=== PATIENT | female | born 1975 | race Caucasian/White ===

== ENCOUNTER → 2017-02-20 | Outpatient (CLI) | payer BC ==
[~2017-02-20] MED LIST: ASPI325T4 PO; CALC500C50 PO; TYLOTC500 PO
[2017-02-22 14:17] LABS: PROLACTIN 10.3 ng/mL
== END | disposition home or self-care (01) ==
LOC: C.LAB 15:03
PROVIDERS: ATTEND Obstetrics & Gynecology
DX: N93.8 Other specified abnormal uterine and vaginal bleeding (principal)

== ENCOUNTER → 2017-02-20 | Outpatient (CLI) | payer BC | END | disposition home or self-care (01) | LOC: C.PAPS 14:13 | PROVIDERS: ATTEND Obstetrics & Gynecology | DX: Z01.411 Encounter for gynecological examination (general) (routine) with abnormal findings (principal); R87.610 Atypical squamous cells of undetermined significance on cytologic smear of cervix (ASC-US) ==

== ENCOUNTER 2017-05-15 21:23 | Emergency (ER) | payer BC ==
[~2017-05-15] VITALS: Ht 157.5 cm; Wt 74.7 kg
[2017-05-15 21:37] VITALS: Ht 157.5 cm; Wt 74.7 kg
[2017-05-15] MEDS ORDERED: KETOROLAC TROMETHAMINE 30 MG/ML VIAL IV STA (21:55)
[2017-05-15] MEDS ORDERED: ONDANSETRON INJ 2 MG/ML 2 ML VIAL IV STA (21:55)
[2017-05-15 22:18] VITALS: O2SAT 100
[2017-05-15 22:43] LABS: BASO % 0.4 %; BASO ABS # 0.03 K/uL (0-0.2); EOS % 0.2 %; HEMATOCRIT 24.2 % (37-47); IG% 0.1 %; LYMPH % 11.8 %; LYMPH ABS # 0.96 K/uL (1.2-3.4); MEAN CELL VOLUME 76.1 fL (80-100); MEAN CORPUSCULAR HEMOGLOBIN 22.6 pg (25-34); MEAN CORPUSCULAR HGB CONC 29.8 g/dl (32-36); MEAN PLATELET VOLUME 10.7 fL (7.4-10.4); MONO % 6.9 %; NEUT % 80.6 %; PLATELET COUNT 194 K/uL (130-400); RED BLOOD COUNT 3.18 M/uL (4.2-5.4); WHITE BLOOD COUNT 8.17 K/uL (4.8-10.8)
[2017-05-15 22:44] LABS: MANUAL MICROSCOPIC REQUIRED? NO; REVIEW REQ? YES; URINE APPEARANCE CLOUDY (CLEAR); URINE BILIRUBIN NEG (NEG); URINE COLOR YELLOW; URINE EPITHELIAL CELL AUTO >30 /lpf (0-5); URINE NITRITE NEG (NEG); URINE SPECIFIC GRAVITY 1.025 (1.000-1.030); UROBILINOGEN NEG (NEG); ZZUR CULT IF INDIC CLEAN CATCH YES
--- NOTE | 2017-05-15 23:00 | DIAGNOSTIC IMAGING REPORT ---
ABD/PELVIS WITHOUT FOR STONE CLINICAL HISTORY: 41 years-old Female presenting with severe left flank pain. TECHNIQUE: Multidetector CT of the abdomen and pelvis was performed without the use of intravenous contrast. IV contrast: None. A dose lowering technique was used consistent with the principles of ALARA (as low as reasonably achievable). COMPARISON: None. CT DOSE (mGy.cm): The estimated cumulative dose is 1075.15 mGy.cm. FINDINGS: Insurance Commissioner topogram: Unremarkable. Lung bases: Minimal basilar opacities, likely atelectasis. Intraventricular blood pool is less dense than the adjacent myocardium consistent with anemia. Normal heart size. No pericardial or pleural effusion. Liver: Normal morphology. Normal density. Biliary: No gross biliary ductal dilatation allowing for noncontrast technique. Normal gallbladder. Pancreas: Normal noncontrast appearance. Spleen: Normal noncontrast appearance. Adrenal glands: Normal noncontrast appearance. Kidneys and ureters: Hyperdensity of the renal medulla suggests medullary nephrocalcinosis. No nephrolithiasis. No hydronephrosis. Normal ureters. Bladder: Incompletely evaluated secondary to underdistention. Pelvic organs: Prominence of the endometrium. The left ovary contains a 4.5 cm functional cyst. Mild thickening of the upper vagina suggested area Bowel: Normal appendix. No bowel obstruction. Feces in the small bowel suggest delayed transit. Peritoneal cavity: No free fluid or intraperitoneal gas. Lymph nodes: No gross lymphadenopathy allowing for noncontrast technique. Vasculature: Normal noncontrast appearance. Abdominal wall: Small fat-containing umbilical hernia. Musculoskeletal: Normal. IMPRESSION: 1. 4.5 cm left ovarian functional cyst. This is incompletely evaluated without intravenous contrast. Given the of concomitant presence of prominent endometrium and potential upper vaginal thickening, further evaluation with pelvic ultrasound to be considered. 2. Suggestion of medullary nephrocalcinosis. 3. Anemia. Electronically signed by: Nolberto Stanford M.D. 05/15/2017 10:59 PM Dictated Date/Time: 05/15/2017 10:53 PM
[2017-05-15 23:01] LABS: ALT/SGPT 30 U/L (12-78); BLOOD UREA NITROGEN 17 mg/dl (7-18); BUN/CREATININE RATIO 19.9 (10-20); CALCIUM 8.4 mg/dl (8.5-10.1); CARBON DIOXIDE 27 mmol/L (21-32); CHLORIDE 105 mmol/L (98-107); CREATININE 0.84 mg/dl (0.60-1.20); GLUCOSE 103 mg/dl (70-99); SODIUM 138 mmol/L (136-145)
[2017-05-15 23:03] LABS: COMPLETE YES; HYPOCHROMIA PRESENT; PREG INTERNAL NEGATIVE QC NEG CLEAR BACKGROUND; PREG INTERNAL POSITIVE QC POS CONTROL LINE
[2017-05-15 23:04] LABS: ALKALINE PHOSPHATASE 51 U/L (45-117); AST/SGOT 12 U/L (15-37)
[2017-05-15] MEDS ORDERED: CEFTRIAXONE SOD INJ 1 GM ADDVIAL IV STA (23:09)
[2017-05-15] MEDS ORDERED: FERROUS SULFATE 325 MG TAB PO STA (23:55)
[2017-05-16] MEDS ORDERED: CEFDINIR 300 MG CAP PO SCH
[2017-05-16] MEDS ORDERED: BIOF500C2 PO (01:25)
[2017-05-16] MEDS ORDERED: FERR1TAB23 PO (01:25)
[2017-05-16] MEDS ORDERED: CEFDINIR 300 MG CAP PO STA (02:26)
--- NOTE | 2017-05-16 02:27 | EMERGENCY ROOM VISIT NOTE ---
History First contact with patient: 21:43 Chief Complaint: FLANK PAIN Stated Complaint: BACK PAIN, PAIN UNDER BREAST AND DOWN ABDOMEN History of Present Illness The patient is a 41 year old female who presents to the Emergency Room with complaints of left flank pain and left lower quadrant pain with urinary symptoms for the past several hours ranging in severity currently 5 out of 10. Nothing makes it better or worse. It radiates to her groin. Patient has a history of endometriosis. She finished her period last week. Her menstrual cycles have been getting heavier. She follows with Dr. Silva. Patient also feels fatigued. Patient states she was told in the past taken iron pill but she does not do this. Patient denies chest pain, dyspnea, vaginal bleeding, black or blood in the stool, bruising, bleeding gums, fever, chills. No recent antibiotics. No history GI bleeding. No blood transfusions in the past. Review of Systems See HPI for pertinent positives & negatives. A total of 10 systems reviewed and were otherwise negative. Past Medical/Surgical History Endometriosis Social History Smoking Status: Never Smoker Smokeless Tobacco Use: No Drug Use: none Marital Status: Housing Status: lives with family Current/Historical Medications Scheduled Bioflavonoid Products (Vitamin C), 1 EA PO DAILY Ferrous Sulfate (Iron), 1 TAB PO DAILY Physical Exam Vital Signs Date Time Temp Pulse Resp B/P (MAP) Pulse Ox O2 Delivery O2 Flow Rate FiO2 05/16/17 01:01 87 20 119/55 97 Room Air 05/15/17 22:38 66 05/15/17 22:18 100 Room Air 05/15/17 22:18 100 Room Air 05/15/17 21:37 36.5 76 18 121/78 98 Room Air Physical Exam VITALS: Vitals are noted on the nurse's note and reviewed by myself. Vital signs stable. GENERAL: Pleasant female, in no acute distress, nondiaphoretic, well-developed well-nourished. SKIN: The skin was without rashes, erythema, edema, or bruising. There is no tenting of the skin. Capillary reflex less than 2 seconds. HEAD: Normocephalic atraumatic. EARS: External auditory canals clear, tympanic membranes pearly dunne without erythema or effusion bilaterally. EYES: Pupils equal round and reactive to light and accommodation. Conjunctivae without injection, sclerae without icterus. Extraocular movements intact. NOSE: Patent, turbinates without inflammation or discharge. MOUTH: Mucous membranes moist. Pharynx without erythema or exudate. Uvula midline. Airway patent. Tongue does not deviate. NECK: Supple without nuchal rigidity. No lymphadenopathy. No thyromegaly. Cervical spine is nontender. No JVD. HEART: Regular rate and rhythm LUNGS: Clear to auscultation bilaterally without wheezes, rales or rhonchi. No dullness to percussion. No retractions or accessory muscle use. ABDOMEN: Positive bowel sounds x 4. Normal tympanic percussion. Soft, nontender, without masses or organomegaly. Anguiano sign negative. No guarding or rebound tenderness. Left CVA tenderness MUSCULOSKELETAL: No muscle atrophy, erythema, or edema noted. NEURO: Patient was alert and oriented to person place and time. Normal sensation to light and sharp touch. No focal neurological deficits. Medical Decision & Procedures Laboratory Results 05/15/17 22:10 Red Blood Count 3.18, Mean Corpuscular Volume 76.1, Mean Corpuscular Hemoglobin 22.6, Mean Corpuscular Hemoglobin Concent 29.8, Mean Platelet Volume 10.7, Neutrophils (%) (Auto) 80.6, Lymphocytes (%) (Auto) 11.8, Monocytes (%) (Auto) 6.9, Eosinophils (%) (Auto) 0.2, Basophils (%) (Auto) 0.4, Neutrophils # (Auto) 6.59, Lymphocytes # (Auto) 0.96, Monocytes # (Auto) 0.56, Eosinophils # (Auto) 0.02, Basophils # (Auto) 0.03 05/15/17 22:10 Test 05/15/17 04:44 05/15/17 22:10 05/15/17 22:15 White Blood Count 8.17 K/uL (4.8-10.8) Red Blood Count 3.18 M/uL (4.2-5.4) Hemoglobin 7.2 g/dL (12.0-16.0) Hematocrit 24.2 % (37-47) Mean Corpuscular Volume 76.1 fL (80-100) Mean Corpuscular Hemoglobin 22.6 pg (25-34) Mean Corpuscular Hemoglobin Concent 29.8 g/dl (32-36) Platelet Count 194 K/uL (130-400) Mean Platelet Volume 10.7 fL (7.4-10.4) Neutrophils (%) (Auto) 80.6 % Lymphocytes (%) (Auto) 11.8 % Monocytes (%) (Auto) 6.9 % Eosinophils (%) (Auto) 0.2 % Basophils (%) (Auto) 0.4 % Neutrophils # (Auto) 6.59 K/uL (1.4-6.5) Lymphocytes # (Auto) 0.96 K/uL (1.2-3.4) Monocytes # (Auto) 0.56 K/uL (0.11-0.59) Eosinophils # (Auto) 0.02 K/uL (0-0.5) Basophils # (Auto) 0.03 K/uL (0-0.2) RDW Standard Deviation 46.9 fL (36.4-46.3) RDW Coefficient of Variation 16.6 % (11.5-14.5) Immature Granulocyte % (Auto) 0.1 % Immature Granulocyte # (Auto) 0.01 K/uL (0.00-0.02) Hypochromasia PRESENT Anion Gap 6.0 mmol/L (3-11) Est Creatinine Clear Calc Drug Dose 81.7 ml/min Estimated GFR () 98.7 Estimated GFR (Non- 85.1 BUN/Creatinine Ratio 19.9 (10-20) Calcium Level 8.4 mg/dl (8.5-10.1) Total Bilirubin 0.2 mg/dl (0.2-1) Direct Bilirubin < 0.1 mg/dl (0-0.2) Aspartate Amino Transf (AST/SGOT) 12 U/L (15-37) Alanine Aminotransferase (ALT/SGPT) 30 U/L (12-78) Alkaline Phosphatase 51 U/L (45-117) Total Protein 7.2 gm/dl (6.4-8.2) Albumin 3.7 gm/dl (3.4-5.0) Lipase 132 U/L (73-393) Human Chorionic Gonadotropin, Qual NEG (NEG) Urine Color YELLOW Urine Appearance CLOUDY (CLEAR) Urine pH 5.0 (4.5-7.5) Urine Specific [place] 1.025 (1.000-1.030) Urine Protein NEG (NEG) Urine Glucose (UA) NEG (NEG) Urine Ketones TRACE (NEG) Urine Occult Blood TRACE (NEG) Urine Nitrite NEG (NEG) Urine Bilirubin NEG (NEG) Urine Urobilinogen NEG (NEG) Urine Leukocyte Esterase MODERATE (NEG) Urine WBC (Auto) >30 /hpf (0-5) Urine RBC (Auto) 0-4 /hpf (0-4) Urine Hyaline Casts (Auto) 5-10 /lpf (0-5) Urine Epithelial Cells (Auto) >30 /lpf (0-5) Urine Bacteria (Auto) 2+ (NEG) Medications Administered Medications (Trade) Dose Ordered Sig/Jorje Route Start Time Stop Time Status Last Admin Dose Admin Ketorolac Tromethamine (Toradol Inj) 30 mg NOW STAT IV 05/15/17 21:55 05/15/17 21:58 DC 05/15/17 22:14 30 MG Ondansetron HCl (Zofran Inj) 4 mg NOW STAT IV 05/15/17 21:55 05/15/17 21:58 DC 05/15/17 22:14 4 MG Ceftriaxone Sodium (Rocephin Inj) 1 gm NOW STAT IV 05/15/17 23:09 05/15/17 23:10 DC 05/15/17 23:50 1 GM Ferrous Sulfate (Feosol Tab) 325 mg NOW STAT PO 05/15/17 23:55 05/15/17 23:57 DC 05/16/17 00:59 325 MG ED Course Prior records/ancillary studies reviewed. Triage Nursing notes reviewed. Additional history obtained from family The patient's history was concerning for flank and abdominal pain. Differential diagnosis: Etiologies such as ovarian cyst, torsion, mass, appendicitis, diverticulitis, PUD, biliary pathology, UTI, pancreatitis, obstruction, mesenteric ischemia, aortic pathology, infections, inflammatory bowel disease, renal colic, as well as others were entertained. Physical examination findings: As above. ER treatment provided: NSS, iron with OJ, type and screen but patient was not transfused, Rocephin On reassessment the patient felt better. Diagnostics interpreted by me: The labs revealed severe anemia concerning for iron deficiency without active bleeding. Type and screen sent Urine concerning for infection and sent for culture Imaging studies: US PELVIC/ENDOVAG: Left ovarian complex mass measuring 5.0 x 4.9 x 4.0 cm. It demonstrates numerous septations and internal echogenicity. No normal left ovarian tissue demonstrated. Blood flow demonstrated along the periphery of the mass. Thickened endometrium, measuring up to 1.8 cm. There is abnormal focal ill- defined heterogeneous region with increased blood flow and also small cystic spaces along the endometrium. Differential includes endometrial carcinoma although benign etiologies are also possible. Trace free fluid. Echogenic region at the distal vagina seen on transabdominal imaging with associated flow on color Doppler is of uncertain etiology and incompletely characterized. Right ovary is normal in size and demonstrates 2 small simple cysts. Radiologist: Benedict Corey MD ABD/PELVIS WITHOUT FOR STONE CLINICAL HISTORY: 41 years-old Female presenting with severe left flank pain. TECHNIQUE: Multidetector CT of the abdomen and pelvis was performed without the use of intravenous contrast. IV contrast: None. A dose lowering technique was used consistent with the principles of ALARA (as low as reasonably achievable). COMPARISON: None. CT DOSE (mGy.cm): The estimated cumulative dose is 1075.15 mGy.cm. FINDINGS: Ice Handler topogram: Unremarkable. Lung bases: Minimal basilar opacities, likely atelectasis. Intraventricular blood pool is less dense than the adjacent myocardium consistent with anemia. Normal heart size. No pericardial or pleural effusion. Liver: Normal morphology. Normal density. Biliary: No gross biliary ductal dilatation allowing for noncontrast technique. Normal gallbladder. Pancreas: Normal noncontrast appearance. Spleen: Normal noncontrast appearance. Adrenal glands: Normal noncontrast appearance. Kidneys and ureters: Hyperdensity of the renal medulla suggests medullary nephrocalcinosis. No nephrolithiasis. No hydronephrosis. Normal ureters. Bladder: Incompletely evaluated secondary to underdistention. Pelvic organs: Prominence of the endometrium. The left ovary contains a 4.5 cm functional cyst. Mild thickening of the upper vagina suggested area Bowel: Normal appendix. No bowel obstruction. Feces in the small bowel suggest delayed transit. Peritoneal cavity: No free fluid or intraperitoneal gas. Lymph nodes: No gross lymphadenopathy allowing for noncontrast technique. Vasculature: Normal noncontrast appearance. Abdominal wall: Small fat-containing umbilical hernia. Musculoskeletal: Normal. IMPRESSION: 1. 4.5 cm left ovarian functional cyst. This is incompletely evaluated without intravenous contrast. Given the of concomitant presence of prominent endometrium and potential upper vaginal thickening, further evaluation with pelvic ultrasound to be considered. 2. Suggestion of medullary nephrocalcinosis. 3. Anemia. Electronically signed by: Nolberto Stanford M.D. Consultation: A consultation was placed with the Dr. Whitfield and Dr. Silva. The case was discussed and diagnostics were reviewed. Dr. Whitfield recommends consulting the patient's OB specialist which is Dr. zelaya. Dr. Silva knows the patient well and states the patient does have an anemia. He recommends multivitamin with iron and iron supplement with vitamin C and he will see the patient in office. Dr. Whitfield recommends checking a CA 125 blood test. US was ordered after consult Exam and history seem consistent with UTI vs early pyelonephritis as patient has left CVA tenderness with asymptomatic anemia. Patient also has his left ovarian mass and abnormal ultrasound. Patient was started on iron supplementation and antibiotics. She is advised to take this along with a multivitamin with iron. She is advised to see Dr. Silva on for definitive care for her acute findings on today's workup. She is advised to return to the ER immediately for chest pain, difficulty breathing, heavy bleeding, weakness, worsening signs or symptoms or as needed. She is advised take medications as directed. Patient did not have acute abdomen on exam. She had no active bleeding. She is well-appearing. She requested to leave. I felt this is a reasonable option. It appears her anemia is chronic in nature and Dr. Silva knows her well. By the evaluation outlined above emergent etiologies such as appendicitis, diverticulitis, PUD, biliary pathology, pancreatitis, obstruction, mesenteric ischemia, aortic pathology, inflammatory bowel disease, renal colic, as well as others were deemed relatively unlikely. The pt informed about the findings as listed above. All questions were answered and pleased with the treatment. Return instructions were outlined and the patient was discharged in stable condition. Outpatient prescription management: Iron, Vt C, Omnicef Referral: The patient was referred back to their BOOK SEWING MACHINE OPERATOR for follow-up in 2 to 3 days for a recheck of the current condition. Case reviewed by attending. The chart was completed utilizing [employer] voice recognition software. Grammatical errors, random word insertions, pronoun errors, and incomplete sentences are an occassional consequence of this system due to software limitations, ambient noise, and hardware issues. Any formal questions or concerns about the content, text, or information contained within the body of this dictation should be directly addressed to the physician conservation assistant for clarification. Medical Decision As above Medication Reconcilliation Current Medication List: was personally reviewed by me Blood Pressure Screening Patient's blood pressure: Normal blood pressure Impression Primary Impression: Urinary tract infection Additional Impressions: Left flank pain Anemia Mass of left ovary Departure Information Dispostion Home / Self-Care Condition GOOD Prescriptions Bioflavonoid Products (VITAMIN C) 1 Chw Chw 1 EA PO DAILY, #30 BTL take with Iron Prov: Stephanie Quinones PA-C 05/16/17 Ferrous Sulfate (IRON) 325 Mg Tab 1 TAB PO DAILY for 30 Days, #30 TABS Prov: Stephanie Quinones PA-C 05/16/17 Referrals Jeb Norris M.D. (PCP) Patient Instructions My [facility] Additional Instructions DO NOT drive, drink alcohol, operate machinery, or perform dangerous activities today. You were given medications in the ER that can affect your ability to safely function or operate a vehicle. Omnicef 300mg: Take one pill twice daily for 7 days for your urine infection. All antibiotics can cause diarrhea. If this occurs and you feel worse or it does not resolve in 1-2 days follow up with your doctor or return to the Emergency Department as this could be signs of serious underlying problems. If you experience any pain in your tendons or any tendon injury return to the ER for re-evaluation. Any medication can cause an allergic reaction, stop the pills immediately and return to the ER for rash, hives, breathing difficulties, or swelling. Zofran 4 mg: Take one every six hours as needed for nausea. Avoid alcohol, operating machinery or dangerous equipment, working on ladders or roofs, DRIVING , or situations where being under the influence may be dangerous. Take your multivitamin supplement with iron along with iron and vitamin C. You need to take this daily. Acetaminophen(Tylenol) may be used for fever or pain. Use 1000mg every six hours as needed. Avoid using more than 3000mg in a 24 hour period. Rest and drink plenty of fluids as tolerated. Continue current medications. Return to the ER immediately for worsening or persistent abdominal/back pain, vaginal bleeding, chest pain, difficulty breathing, vomiting, fevers, worsening of your condition, or as needed. Follow up with your BOOK SEWING MACHINE OPERATOR within 2-3 days for a recheck of the current condition and for further workup. Call this morning for an appointment. Problem Qualifiers Primary Impression: Urinary tract infection Urinary tract infection type: acute cystitis Hematuria presence: without hematuria Qualified Codes: N30.00 - Acute cystitis without hematuria
[2017-05-16] MEDS ORDERED: CEFD300C2 PO (02:28)
[2017-05-16 02:43] VITALS: BP 115/67; PULSE 81; TEMP 36.5; O2SAT 97
--- NOTE | 2017-05-16 07:33 | DIAGNOSTIC IMAGING REPORT ---
PELVIC ULTRASOUND, TRANSABDOMINAL AND TRANSVAGINAL HISTORY: Left lower quadrant pain, left cyst COMPARISON: Abdomen and pelvis CT 05/15/2017. FINDINGS: Uterus: 10.1 x 5.3 x 6.6 cm. A few small hypodense cyst. Endometrial stripe: Focal thickening measuring up to 1.8 cm. The endometrium at the fundus is echogenic and demonstrates increased vascularity. This contains a few small cystic spaces. Right ovary: Normal in size and demonstrates normal color flow. There are 2 small cysts measuring up to 1.4 cm. Left ovary: There is a 4.9 x 4.8 x 3.8 cm multiseptated lesion within the left adnexa which may be within the left ovary. There is no normal ovarian left tissue identified. This lesion demonstrates color-flow is consistent with a mass. Miscellaneous:Echogenic and thickened upper vagina which demonstrates increased color flow. This area measures approximate 1.9 x 1.3 x 2.1 cm. IMPRESSION: 1. A 4.9 x 4.8 x 3.8 cm left adnexal/ovarian complex mass. This is concerning for a malignancy and gynecologic consultation is recommended. 2. There is also focal echogenic endometrium at the fundus which measures up to 1.8 cm of thickness. This may represent an endometrial polyp or mass. 3. Echogenic and thickened upper vagina. This is only seen transabdominally and direct visualization is recommended to exclude a mass lesion. Electronically signed by: Alton Yarbrough M.D. 05/16/2017 7:32 AM Dictated Date/Time: 05/16/2017 7:25 AM
== END 2017-05-16 02:43 | disposition home or self-care (01) ==
LOC: C.EDB 21:25 → C.EDC 05-16 02:43
DX: N39.0 Urinary tract infection, site not specified (principal); N83.9 Noninflammatory disorder of ovary, fallopian tube and broad ligament, unspecified; D64.9 Anemia, unspecified

== ENCOUNTER 2017-08-11 10:56 | Inpatient (IN) | payer BC ==
--- NOTE | 2017-08-04 10:39 | HISTORY & PHYSICAL EXAMINATION ---
DATE OF ADMISSION: 08/11/2017 CHIEF COMPLAINT: Anemia, pelvic pain, abnormal ultrasound. HISTORY OF PRESENT ILLNESS: The patient is a 41-year-old 4, para 4, general health is good. In 2012, she had a diagnostic laparoscopy, D&C for heavy vaginal bleeding, pelvic pain. At this time, she is found to have stage IV endometriosis. This went untreated. She was seen in the Emergency Room in April 2017 with an episode of heavy vaginal bleeding. She had bled down to a hemoglobin of 7 grams. They did an ultrasound that showed a suspicious complex cyst of the left ovary. She has a history of also having pelvic pain and discomfort and obviously episodes of heavy prolonged vaginal bleeding. Due to her prior diagnosis of stage IV endometriosis, she is presently being scheduled for total abdominal hysterectomy with a left salpingo-oophorectomy. PAST MEDICAL HISTORY: She has 4 children in good health. ALLERGIES: She has no known drug allergies. PAST SURGICAL HISTORY: She had a lap eval, D&C 2012, found to have stage IV endometriosis. She had her wisdom teeth removed. MEDICAL HISTORY: No history of rheumatic fever, heart disease, heart murmur, diabetes or tuberculosis. She is presently on norethindrone 5 mg daily to prevent any periods. SOCIAL HISTORY: No smoking, no alcohol intake. She is employed. FAMILY HISTORY: Mom 70 in good health, high blood pressure. Father 71, has high blood pressure and diabetes. Her 2 brothers and 2 sisters all in good health. REVIEW OF SYSTEMS: HEAD: No symptoms of frequent or severe headaches. EYES: No symptoms of blurred vision, double vision. EARS: No symptoms of frequent ear infections, difficulty hearing. NOSE: No symptoms of frequent nosebleed, difficulty breathing through her nose. PHYSICAL EXAMINATION: GENERAL: A well-developed, well-nourished 41-year-old white female, alert, oriented x3 and cooperative, no acute distress, appeared her stated age. EYES: Conjunctivae are pink. Sclerae white, no evidence of jaundice. EARS: Had normal light reflex bilaterally. NOSE: Had normal mucosa. Septum is midline. There were no polyps. THROAT: No erythema or evidence of infection. Teeth are in good state of repair. HEAD: Normocephalic, normal distribution of hair. NECK: Supple. Trachea midline. Thyroid is not enlarged. There is no adenopathy appreciated. Both carotids are of good intensity. CHEST: Clear to auscultation and percussion. No wheezes, rales or rhonchi appreciated. HEART: Had a regular rhythm. S1, S2 are normal. Breast exam was normal. ABDOMEN: Soft and nontender. PELVIC: Revealed tenderness and nodularity of the uterosacral ligaments. There is fullness of the left adnexa along with tenderness. MUSCULOSKELETAL: Revealed no calf tenderness. IMPRESSIONS OF THIS CASE: Stage IV endometriosis, symptomatic; pelvic pain; anemia; abnormal transvaginal ultrasound. MTDD
[2017-08-04 11:53] VITALS: BMI 31.0
--- NOTE | 2017-08-04 12:21 | PAT Medication Instructions ---
Service Date Aug 04, 2017. Current Home Medication List Acetaminophen (Tylenol), Unknown Dose PO UD PRN for Pain Ascorbic Acid (Vitamin C), Unknown Dose PO QDL Ibuprofen (Advil), 400 MG PO UD PRN for Pain Norethindrone (Aygestin), 5 MG PO QDL Pediatric Multiple Vitamins W/ (Flintstones Plus Iron), 1 TAB PO QDL Medication Instructions For Your Scheduled Surgery -Contact your surgeon for instructions: Ibuprofen (Advil), 400 MG PO UD PRN for Pain - Take the following medications the morning of surgery with a sip of water: Acetaminophen (Tylenol), Unknown Dose PO UD PRN for Pain (if needed, can be taken up to four hours before surgery) - Take the following medications as scheduled the night before surgery: Acetaminophen (Tylenol), Unknown Dose PO UD PRN for Pain Ascorbic Acid (Vitamin C), Unknown Dose PO QDL Pediatric Multiple Vitamins W/ (Flintstones Plus Iron), 1 TAB PO QDL Norethindrone (Aygestin), 5 MG PO QDL If you have any questions please call us at [phone] or [phone] or [phone]
[2017-08-04 12:55] LABS: BASO % 0.4 %; BASO ABS # 0.02 K/uL (0-0.2); EOS % 0.7 %; EOS ABS # 0.03 K/uL (0-0.5); HEMATOCRIT 39.4 % (37-47); HEMOGLOBIN 13.6 g/dL (12.0-16.0); IG# 0.02 K/uL (0.00-0.02); LYMPH % 23.9 %; LYMPH ABS # 1.09 K/uL (1.2-3.4); MEAN CELL VOLUME 87.6 fL (80-100); MEAN CORPUSCULAR HEMOGLOBIN 30.2 pg (25-34); MEAN CORPUSCULAR HGB CONC 34.5 g/dl (32-36); MEAN PLATELET VOLUME 10.5 fL (7.4-10.4); MONO % 9.2 %; MONO ABS # 0.42 K/uL (0.11-0.59); NEUT % 65.4 %; NEUT ABS # 2.98 K/uL (1.4-6.5); PLATELET COUNT 230 K/uL (130-400); RED CELL DISTRIBUTION WIDTH CV 14.6 % (11.5-14.5); RED CELL DISTRIBUTION WIDTH SD 44.7 fL (36.4-46.3); WHITE BLOOD COUNT 4.56 K/uL (4.8-10.8)
[2017-08-04 13:05] LABS: PTT PATIENT 26.7 SECONDS (21.0-31.0)
[2017-08-04 13:07] LABS: CALCIUM 8.6 mg/dl (8.5-10.1); CREATININE 0.82 mg/dl (0.60-1.20); POTASSIUM 4.1 mmol/L (3.5-5.1)
[~2017-08-11] VITALS: Ht 157.5 cm; Wt 76.9 kg
[~2017-08-11 10:56] MED LIST changes: +ACET-1311 PO; +ASCA500 PO; -ASPI325T4 PO; +ATROPINE SULFATE 0.1 MG/ML 5ML SYR IV PRN; -CALC500C50 PO; +CEFOXITIN 2000MG/60 ML D5W IV SCH; +CEFOXITIN IV 2,000 MG in DEXTROSE 5% 50ML 50 ML IV SCH; +EpHEDrine SULFATE INJ 50 MG/ML AMP IV PRN; +FENTANYL CITRATE INJ 50 MCG/1 ML 2 ML VIAL IV PRN; +HYDROmorphone INJ 1 MG/ML SYR IV PRN; +IBUP-1050 PO; +LACTATED RINGER'S 1000ML 1,000 ML IV SCH; +NORE5TAB5 PO; +ONDANSETRON INJ 2 MG/ML 2 ML VIAL IV PRN; +PEDICHW44 PO; +PHENYLEPHRINE 100MCG/ML 5ML SYR IV PRN; +PROMETHAZINE HCL INJ 12.5 MG in SODIUM CHLORIDE 0.9% 50ML 50 ML IV PRN; -TYLOTC500 PO
[2017-08-11 11:16] VITALS: BP 124/67; PULSE 80; TEMP 36.8; O2SAT 97; Ht 157.5 cm; Wt 76.9 kg
[2017-08-11] MEDS ORDERED: MIDAZOLAM HCL 1 MG/ML 2ML VIAL ONE (12:18)
[2017-08-11] MEDS ORDERED: FENTANYL CITRATE INJ 50 MCG/1 ML 2 ML VIAL ONE (12:18)
[2017-08-11] MEDS ORDERED: KETAMINE HCL INJ 50 MG/ML 10 ML VIAL ONE (12:19)
[2017-08-11] MEDS ORDERED: HYDROmorphone INJ 2 MG/ML SYR/VIAL ONE (12:19)
[2017-08-11] MEDS ORDERED: MoRPHine SULFATE PF 1 MG/ML 10 ML AMP/VIAL ONE (12:29)
--- NOTE | 2017-08-11 14:52 | History & Physical Bridge Note ---
H&P Re-Evaluation Bridge Note: I have examined the patient, reviewed the History & Physical and in the interval since the performance of the History & Physical I have noted the following changes of clinical significance: No changes noted
[2017-08-11] MEDS ORDERED: HEPARIN SOD (PORCINE) 1000 UNIT/ML 10 ML VIAL ONE (15:19)
[2017-08-11] MEDS ORDERED: LIDOCAINE HCL 2% 2 ML VIAL (20MG/ML) ONE (16:04)
[2017-08-11] MEDS ORDERED: PROPOFOL IV EMULSION 10 MG/ML 20 ML VIAL IV ONE (16:04)
[2017-08-11] MEDS ORDERED: DEXAMETHASONE SOD INJ 4 MG/ML VIAL ONE (16:04)
[2017-08-11] MEDS ORDERED: ONDANSETRON INJ 2 MG/ML 2 ML VIAL ONE (16:04)
[2017-08-11] MEDS ORDERED: LARYING-O-JET KIT (LTA) ONE (16:04)
[2017-08-11] MEDS ORDERED: NALOXONE HCL INJ 0.08 MG in SYRINGE 1.8 ML IV PRN (17:18)
[2017-08-11] MEDS ORDERED: SODIUM CHLORIDE 0.9% 1000ML 1,000 ML IV PRN (17:18)
[2017-08-11] MEDS ORDERED: NALOXONE HCL INJ 1 MG in SODIUM CHLORIDE 0.9% 1000ML 1,000 ML IV PRN ×4 (17:18)
[2017-08-11] MEDS ORDERED: LACTATED RINGER'S 1000ML 500 ML IV PRN (17:18)
[2017-08-11] MEDS ORDERED: EpHEDrine SULFATE INJ 50 MG/ML AMP IV PRN (17:30)
[2017-08-11] MEDS ORDERED: PROMETHAZINE HCL INJ 12.5 MG in SODIUM CHLORIDE 0.9% 50ML 50 ML IV PRN (17:30)
[2017-08-11] MEDS ORDERED: NALBUPHINE HCL INJ 10 MG/ML AMP IV PRN (17:30)
[2017-08-11] MEDS ORDERED: MEPERIDINE HCL 50 MG/ML CARP IV PRN (17:30)
[2017-08-11] MEDS ORDERED: NO NARCOTICS OR SEDATIVES SCH (17:30)
[2017-08-11] MEDS ORDERED: ONDANSETRON INJ 2 MG/ML 2 ML VIAL IV PRN (17:30)
[2017-08-11] MEDS ORDERED: DiphenhydrAMINE HCL 50 MG/ML VIAL IV PRN (17:30)
[2017-08-11] MEDS ORDERED: NALOXONE HCL 0.4 MG/1 ML VIAL/CARP IV PRN (17:30)
[2017-08-11] MEDS ORDERED: MoRPHine SULFATE PF 1 MG/ML 10 ML AMP/VIAL EPI PRN (17:30)
[2017-08-11] MEDS ORDERED: NEOSTIGMINE METHYLSULFATE 5 MG/5 ML SYR ONE (17:37)
[2017-08-11] MEDS ORDERED: GLYCOPYRROLATE INJ 0.2 MG/ML VIAL ONE (17:37)
--- NOTE | 2017-08-11 18:08 | [facility] Post Operative Brief Note ---
Immediate Operative Summary Operative Date Aug 11, 2017. Pre-Operative Diagnosis stage IV endometriosis Post-Operative Diagnosis stage IV frozen pelvis Procedure(s) Performed total abdominal hysterectomy, bilateral salpingo-oophorectomy, lysis of adhesions Surgeon Dr. Harjit Casarez Food Service Lead Surgeon(s) surgical scrub Estimated Blood Loss 100ml Findings Consistent with Post-Op Diagnosis Fluids (cc crystalloids) 1500 ml Specimens A. right fallopian tube and ovary-sent permanent B. left fallopian tube and ovary-sent permanent C. uterus and cervix-permanent Drains germán drotis with saftey pin in the vagina Anesthesia Type General Regional Complication(s) none Disposition Accompanied Pt To Recover: no Disposition: Recovery Room / PACU
[2017-08-11] MEDS ORDERED: D5W AND LACTATED RINGERS 1,000 ML IV SCH (18:16)
[2017-08-11] MEDS ORDERED: MAGNESIUM HYDROXIDE SUSP 30 ML UDC PO PRN (18:30)
[2017-08-11] MEDS ORDERED: SENNA 8.6 MG TAB PO PRN (18:30)
[2017-08-11] MEDS ORDERED: BISACODYL 10 MG SUPP PR PRN (18:30)
--- NOTE | 2017-08-11 18:44 | Anesthesiology Progress Note ---
Anesthesia Post Op Note Date & Time Aug 11, 2017 at 18:44 Vital Signs Pain Intensity: 0 Vital Signs Past 12 Hours Date Time Temp Pulse Resp B/P (MAP) Pulse Ox O2 Delivery O2 Flow Rate FiO2 08/11/17 18:40 36.6 71 16 08/11/17 18:40 70 16 98 08/11/17 18:36 121/64 08/11/17 18:35 70 17 08/11/17 18:35 69 17 98 08/11/17 18:31 123/68 08/11/17 18:30 75 14 08/11/17 18:30 75 14 98 08/11/17 18:26 125/67 08/11/17 18:25 73 20 98 08/11/17 18:25 74 20 08/11/17 18:21 118/56 08/11/17 18:20 80 17 08/11/17 18:20 81 17 118/69 97 08/11/17 18:15 36.5 82 16 118/69 97 Oxymask 7 08/11/17 11:16 36.8 80 18 124/67 97 Room Air Notes Mental Status: alert / awake / arousable, participated in evaluation Pt Amnestic to Procedure: Yes Nausea / Vomiting: adequately controlled Pain: adequately controlled Airway Patency, RR, SpO2: stable & adequate BP & HR: stable & adequate Hydration State: stable & adequate Neuraxial Anesthesia: was administered, sensory block is resolving Anesthetic Complications: no major complications apparent
[2017-08-11 19:00] VITALS: BP 117/69; PULSE 77; TEMP 36.6; O2SAT 95
[2017-08-11 19:30] VITALS: BP 116/68; PULSE 80; TEMP 36.5; O2SAT 97
[2017-08-11 20:00] VITALS: BP 116/69; PULSE 74; TEMP 36.7; O2SAT 97
[2017-08-11] MEDS: KETOROLAC TROMETHAMINE 30 MG/ML VIAL IV. PRN (20:13)
--- NOTE | 2017-08-11 20:37 | OPERATIVE REPORT ---
DATE OF OPERATION: 08/11/2017 INDICATIONS FOR SURGERY: History of heavy bleeding, stage IV endometriosis, abnormal transvaginal ultrasound. PREOPERATIVE DIAGNOSIS: Symptomatic stage IV endometriosis. POSTOPERATIVE DIAGNOSIS: Frozen pelvis. SURGEON: Harjit Casarez MD. ESTIMATED BLOOD LOSS: 150 mL. ANESTHESIA: Spinal with Regional. OPERATIVE FINDINGS AND PROCEDURE: The patient was brought to the OR table, correctly identified by armband and conversation. Compression stockings were applied. The vagina was painted with Betadine. Gibbons catheter was inserted aseptically in the bladder and connected to gravity drainage. Lower abdomen was scrubbed with an alcohol based sterilizing solution. Pfannenstiel incision was made, carried down to the anterior fascia by sharp dissection. Hemostasis was secured by electrocauterization. Fascia was incised transversely, from the underlying muscle by blunt and sharp dissection. Recti muscles in midline exposing peritoneum which was carefully raised and entered. An Mara'Casey-Delia self-retraining retractor was inserted into the incision and several moist laparotomy packs were used to pack off the bowel since she had a frozen pelvis. Ovaries were fixed both of them in the cul-de-sac, large bowel was fixed right up to the fundus of the uterus, was unable to salvage the right ovary. I had to go retroperitoneally and ligate the lateral attachment of the ovaries to the lateral pelvic wall, both the right and left side. I doubly ligated them distally and then ligated them proximally and then cut the blood supply. Did the same thing with the round ligaments, doubly ligated the round ligaments distally, proximally and made an incision above the vesicouterine fold. We then had to do a lot of blunt dissection and sharp dissection. We had to dissect off the large bowel, off the posterior surface of the uterus. We went right to the fundus. Initially there was no cul-de-sac. We had to keep finding a way into the cul-de-sac which eventually we did and was able to get behind the uterosacral ligaments and the cervix. We dissected everything down far enough that we could get the uterine vessels on either side with a curved Darrius's and then we continued to dissect down with a lot of difficulty and we were able to get the bladder off and get everything away from the posterior cervix. Then we were able to serially clamp the cervix and slide off with a curved Darrius, cut with a stump and ligate with a chromic gut suture. This was done about 4 or 5 steps because of the difficulty and shelled the cervix out and entered the vagina. We sutured the angles of the vaginal cuff at the stumps of the cardinal ligaments. Then I whipstitched open the whole vaginal cuff, incorporating the stumps of the cardinal ligaments. I then approximated the vagina front to back with a zjyenq-[id number] suture on the right side and single suture on the left and then placed a Mcgee drain with a safety pin down into the center. I brought the rounds down, tied them into the cuff for elevation. There was a lot of raw edges in the back but they were pretty quiet in terms of bleeding, washed everything out and everything looked good. We removed the packs, did a careful anatomical approximation of the anterior abdominal wall, approximated the peritoneum with a continuous mattress suture of chromic catgut and an interrupted [id number] suture to approximate the rectus muscle, continuous interlocking suture of Vicryl on each side, tied in the midline of the fascia, used a plane to approximate the subQ and skin edge approximated with staple clips. I attest to the content of the Intraoperative Record and any orders documented therein. Any exception s are noted below.
[2017-08-11 21:00] VITALS: BP 117/66; PULSE 87; TEMP 37.1; O2SAT 96
[2017-08-11 23:20] VITALS: BP 105/58; PULSE 70; TEMP 36.7; O2SAT 99
[2017-08-12] VITALS (12 sets, daily range): BP systolic 103–113; BP diastolic 57–69; PULSE 61–75; TEMP 36.5–37.2; O2SAT 95–99
[2017-08-12] MEDS: KETOROLAC TROMETHAMINE 30 MG/ML VIAL IV. PRN (03:14)
[2017-08-12 07:45] LABS: BASO % 0.1 %; BASO ABS # 0.01 K/uL (0-0.2); HEMATOCRIT 35.4 % (37-47); IG# 0.03 K/uL (0.00-0.02); LYMPH % 7.9 %; LYMPH ABS # 0.98 K/uL (1.2-3.4); MEAN CELL VOLUME 88.9 fL (80-100); MEAN CORPUSCULAR HEMOGLOBIN 30.2 pg (25-34); MEAN CORPUSCULAR HGB CONC 33.9 g/dl (32-36); MEAN PLATELET VOLUME 10.1 fL (7.4-10.4); MONO % 7.7 %; MONO ABS # 0.96 K/uL (0.11-0.59); NEUT % 84.1 %; NEUT ABS # 10.46 K/uL (1.4-6.5); PLATELET COUNT 233 K/uL (130-400); WHITE BLOOD COUNT 12.44 K/uL (4.8-10.8)
[2017-08-12] MEDS ORDERED: MEPERIDINE HCL 50 MG/ML CARP IV PRN ×2 (08:00)
[2017-08-12] MEDS ORDERED: DC INTRASPINAL MORPHINE ONE (08:00)
[2017-08-12] MEDS ORDERED: ONDANSETRON INJ 2 MG/ML 2 ML VIAL IV PRN (08:00)
[2017-08-12] MEDS ORDERED: KETOROLAC TROMETHAMINE 30 MG/ML VIAL IV. PRN (08:00)
--- NOTE | 2017-08-12 09:02 | Progress Note ---
Subjective Aug 12, 2017. Subjective conversation w/ patient Ambulation: limited ambulation Voiding: muñoz catheter in place Passing Gas: No Diet Tolerance: Regular Diet Review of Systems Constitutional: + fever Objective Vital Signs Date Time Temp Pulse Resp B/P (MAP) Pulse Ox O2 Delivery O2 Flow Rate FiO2 08/12/17 08:00 98 Room Air 08/12/17 08:00 18 98 08/12/17 08:00 36.9 67 18 103/64 (77) 98 Room Air 08/12/17 07:10 16 98 08/12/17 06:10 16 97 08/12/17 05:10 16 96 08/12/17 04:10 16 98 08/12/17 03:10 37.0 65 16 106/57 (73) 97 Room Air 08/12/17 03:10 16 97 08/12/17 02:20 16 97 08/12/17 01:20 18 96 08/12/17 00:20 18 98 08/11/17 23:20 18 99 08/11/17 23:20 Room Air 08/11/17 23:20 36.7 70 18 105/58 (74) 99 Room Air 08/11/17 21:00 37.1 87 18 117/66 (83) 96 Room Air 08/11/17 21:00 18 96 08/11/17 20:00 18 97 08/11/17 20:00 36.7 74 18 116/69 (85) 97 Room Air 08/11/17 19:30 36.5 80 16 116/68 (84) 97 Room Air 08/11/17 19:00 95 Room Air 08/11/17 19:00 36.6 77 16 117/69 (85) 95 Room Air 08/11/17 19:00 16 95 08/11/17 19:00 95 Room Air 08/11/17 18:40 36.6 71 16 08/11/17 18:40 70 16 98 08/11/17 18:36 121/64 08/11/17 18:35 70 17 08/11/17 18:35 69 17 98 08/11/17 18:31 123/68 08/11/17 18:30 75 14 08/11/17 18:30 75 14 98 08/11/17 18:30 Nasal Cannula 3 08/11/17 18:26 125/67 08/11/17 18:25 73 20 98 08/11/17 18:25 74 20 08/11/17 18:21 118/56 08/11/17 18:20 80 17 08/11/17 18:20 81 17 118/69 97 08/11/17 18:15 36.5 82 16 118/69 97 Oxymask 7 08/11/17 11:16 36.8 80 18 124/67 97 Room Air Physical Exam General Appearance: WELL-APPEARING Respiratory/Chest: lungs clear Abdomen: non tender, + abnormal bowel sounds Incision Description: Clean, Dry & Intact Extremities: no pedal edema, no calf tenderness Laboratory Results Last 24 Hours Test 08/11/17 11:15 08/12/17 07:26 White Blood Count 12.44 K/uL Red Blood Count 3.98 M/uL Hemoglobin 12.0 g/dL Hematocrit 35.4 % Mean Corpuscular Volume 88.9 fL Mean Corpuscular Hemoglobin 30.2 pg Mean Corpuscular Hemoglobin Concent 33.9 g/dl Platelet Count 233 K/uL Mean Platelet Volume 10.1 fL Neutrophils (%) (Auto) 84.1 % Lymphocytes (%) (Auto) 7.9 % Monocytes (%) (Auto) 7.7 % Eosinophils (%) (Auto) 0.0 % Basophils (%) (Auto) 0.1 % Neutrophils # (Auto) 10.46 K/uL Lymphocytes # (Auto) 0.98 K/uL Monocytes # (Auto) 0.96 K/uL Eosinophils # (Auto) 0.00 K/uL Basophils # (Auto) 0.01 K/uL RDW Standard Deviation 44.0 fL RDW Coefficient of Variation 14.0 % Immature Granulocyte % (Auto) 0.2 % Immature Granulocyte # (Auto) 0.03 K/uL Assessment and Plan Problem List Medical Problems: (1) Anemia Status: Acute (2) Left flank pain Status: Acute (3) Mass of left ovary Status: Acute (4) Urinary tract infection Status: Acute Post-Op Day#: 1 Continue Routine Care: bandage removed
[2017-08-12] MEDS: IBUPROFEN 600 MG TAB PO PRN ×4 (09:23→23:57)
[2017-08-12] MEDS: OXYCODONE/ACETAMINOPHEN 5-325 TAB PO PRN ×4 (09:23→23:57)
[2017-08-13] MEDS: OXYCODONE/ACETAMINOPHEN 5-325 TAB PO PRN ×4 (06:10→20:50)
[2017-08-13] MEDS: IBUPROFEN 600 MG TAB PO PRN ×4 (06:11→20:50)
[2017-08-13 06:40] LABS: BASO % 0.3 %; BASO ABS # 0.02 K/uL (0-0.2); EOS % 0.4 %; EOS ABS # 0.03 K/uL (0-0.5); HEMATOCRIT 34.1 % (37-47); HEMOGLOBIN 11.4 g/dL (12.0-16.0); IG# 0.01 K/uL (0.00-0.02); LYMPH % 28.5 %; LYMPH ABS # 1.91 K/uL (1.2-3.4); MEAN CELL VOLUME 89.7 fL (80-100); MEAN CORPUSCULAR HGB CONC 33.4 g/dl (32-36); MEAN PLATELET VOLUME 10.1 fL (7.4-10.4); MONO % 9.3 %; MONO ABS # 0.62 K/uL (0.11-0.59); NEUT % 61.4 %; NEUT ABS # 4.11 K/uL (1.4-6.5); PLATELET COUNT 206 K/uL (130-400); RED CELL DISTRIBUTION WIDTH CV 14.2 % (11.5-14.5); RED CELL DISTRIBUTION WIDTH SD 44.9 fL (36.4-46.3)
[2017-08-13 08:00] VITALS: BP 109/70; PULSE 80; TEMP 37; O2SAT 98
--- NOTE | 2017-08-13 09:49 | Progress Note ---
Subjective Aug 13, 2017. Subjective conversation w/ patient Ambulation: ambulating normally Voiding: no voiding problems, muñoz catheter in place Passing Gas: No Diet Tolerance: Clear Liquids Review of Systems Constitutional: + fever Objective Vital Signs Date Time Temp Pulse Resp B/P (MAP) Pulse Ox O2 Delivery O2 Flow Rate FiO2 08/13/17 08:00 37.0 80 18 109/70 (83) 98 Room Air 08/13/17 08:00 98 Room Air 08/12/17 23:35 Room Air 08/12/17 23:35 37.2 74 16 113/69 (84) 95 Room Air 08/12/17 16:00 36.9 75 20 111/67 (82) 99 Room Air 08/12/17 16:00 99 Room Air 08/12/17 11:45 36.5 61 18 104/59 (74) Room Air Physical Exam General Appearance: WELL-APPEARING Respiratory/Chest: lungs clear Abdomen: non tender Incision Description: Clean, Dry & Intact Extremities: no pedal edema, no calf tenderness Laboratory Results Last 24 Hours Test 08/13/17 05:53 White Blood Count 6.70 K/uL Red Blood Count 3.80 M/uL Hemoglobin 11.4 g/dL Hematocrit 34.1 % Mean Corpuscular Volume 89.7 fL Mean Corpuscular Hemoglobin 30.0 pg Mean Corpuscular Hemoglobin Concent 33.4 g/dl Platelet Count 206 K/uL Mean Platelet Volume 10.1 fL Neutrophils (%) (Auto) 61.4 % Lymphocytes (%) (Auto) 28.5 % Monocytes (%) (Auto) 9.3 % Eosinophils (%) (Auto) 0.4 % Basophils (%) (Auto) 0.3 % Neutrophils # (Auto) 4.11 K/uL Lymphocytes # (Auto) 1.91 K/uL Monocytes # (Auto) 0.62 K/uL Eosinophils # (Auto) 0.03 K/uL Basophils # (Auto) 0.02 K/uL RDW Standard Deviation 44.9 fL RDW Coefficient of Variation 14.2 % Immature Granulocyte % (Auto) 0.1 % Immature Granulocyte # (Auto) 0.01 K/uL Assessment and Plan Problem List Medical Problems: (1) Anemia Status: Acute (2) Left flank pain Status: Acute (3) Mass of left ovary Status: Acute (4) Urinary tract infection Status: Acute Post-Op Day#: 2 Continue Routine Care: germán drain removed from vaginal cuff
[2017-08-13 16:15] VITALS: BP 111/67; PULSE 75; TEMP 36.6; O2SAT 96
[2017-08-13 23:40] VITALS: BP 115/63; PULSE 69; TEMP 36.6; O2SAT 96
[2017-08-14] MEDS: OXYCODONE/ACETAMINOPHEN 5-325 TAB PO PRN ×3 (00:57→11:46)
[2017-08-14] MEDS: IBUPROFEN 600 MG TAB PO PRN ×3 (00:57→11:46)
[2017-08-14 07:40] VITALS: BP 114/68; PULSE 68; TEMP 36.8; O2SAT 96
--- NOTE | 2017-08-14 07:56 | Anesthesiology Progress Note ---
Anesthesia Post Op Note Date & Time Aug 14, 2017 at 07:56 Vital Signs Pain Intensity: 4.0 Vital Signs Past 12 Hours Date Time Temp Pulse Resp B/P (MAP) Pulse Ox O2 Delivery O2 Flow Rate FiO2 08/13/17 23:40 36.6 69 18 115/63 (80) 96 Room Air 08/13/17 23:40 96 Room Air Notes Mental Status: alert / awake / arousable, participated in evaluation Pt Amnestic to Procedure: Yes Nausea / Vomiting: adequately controlled Pain: adequately controlled Airway Patency, RR, SpO2: stable & adequate BP & HR: stable & adequate Hydration State: stable & adequate Anesthetic Complications: no major complications apparent
--- NOTE | 2017-08-14 08:59 | Progress Note ---
Subjective Aug 14, 2017. Subjective conversation w/ patient Ambulation: ambulating normally Voiding: no voiding problems, muñoz catheter in place Passing Gas: Yes Diet Tolerance: Regular Diet Lochia: Small Review of Systems Constitutional: + fever Objective Vital Signs Date Time Temp Pulse Resp B/P (MAP) Pulse Ox O2 Delivery O2 Flow Rate FiO2 08/14/17 07:40 96 Room Air 08/14/17 07:40 36.8 68 18 114/68 (83) 96 Room Air 08/13/17 23:40 36.6 69 18 115/63 (80) 96 Room Air 08/13/17 23:40 96 Room Air 08/13/17 16:15 36.6 75 18 111/67 (82) 96 Room Air 08/13/17 16:15 Room Air Physical Exam General Appearance: WELL-APPEARING Abdomen: normal bowel sounds, non tender Incision Description: Clean, Dry & Intact Extremities: no pedal edema, no calf tenderness Assessment and Plan Problem List Medical Problems: (1) Anemia Status: Acute (2) Left flank pain Status: Acute (3) Mass of left ovary Status: Acute (4) Urinary tract infection Status: Acute Post-Op Day#: 3
--- NOTE | 2017-08-14 09:03 | Discharge Instructions ---
Discharge Instructions Date of Service Aug 14, 2017. Admission Reason for Admission: Pelvic Pain, Stage 4 Endometriosis Discharge Discharge Diagnosis / Problem: frozen pelvis extensive endometriosis Discharge Goals Goal(s): Routine recovery after surgery Activity Recommendations Activity Limitations: as noted below ACTIVITY RECOMMENDATIONS: * Gradual return to full activity over next 2-3 weeks. * No heavy lifting over next 2-3 weeks. * Nothing in the vagina (no intercourse, tampons, or douching) for 4 weeks * You may walk up and down steps as necessary. * You may drive a car in 2 weeks. * Hot shower or tub bath daily. SPECIAL CARE INSTRUCTIONS: * Check temperature twice daily for one week. Report any elevation over 100.4 degrees Fahrenheit (38.0 degrees Celsius). * Call your doctor if bleeding becomes heavier than the heaviest part of your period - saturating a sanitary pad within an hour. * If you develop a red, hard, warm swollen lump on your incision or if you develop any separation of or drainage from your incision, notify your doctor. . Instructions / Follow-Up Instructions / Follow-Up ACTIVITY RECOMMENDATIONS: * Gradual return to full activity over next 2-3 weeks. * No heavy lifting over next 2-3 weeks. * Nothing in the vagina (no intercourse, tampons, or douching) for 4 weeks * You may walk up and down steps as necessary. * You may drive a car in 2 weeks. * Hot shower or tub bath daily. SPECIAL CARE INSTRUCTIONS: * Check temperature twice daily for one week. Report any elevation over 100.4 degrees Fahrenheit (38.0 degrees Celsius). * Call your doctor if bleeding becomes heavier than the heaviest part of your period - saturating a sanitary pad within an hour. * If you develop a red, hard, warm swollen lump on your incision or if you develop any separation of or drainage from your incision, notify your doctor. Current Hospital Diet Patient's current hospital diet: Regular Diet Discharge Diet Recommended Diet: Regular Diet Procedures Procedures Performed: total abdominal hysterectomy, bilateral salpingo-oophorectomy, lysis of adhesions Pending Studies Studies pending at discharge: no Medical Emergencies . Who to Call and When: Medical Emergencies: If at any time you feel your situation is an emergency, please call 911 immediately. . Non-Emergent Contact Non-Emergency issues call your: Quality Control Lab Tech Call Non-Emergent contact if: temperature is above 100.5 . . "Provider Documentation" section prepared by Chuck Casarez. .
--- NOTE | 2017-08-14 09:23 | DISCHARGE SUMMARY ---
Mrs. Epps was admitted with a history of anemia, heavy bleeding, pelvic pain. PREOPERATIVE DIAGNOSIS: She was diagnosed in 2006 on laparoscopy with extensive endometriosis with fixation of the ovaries. In April 2017, she came into the Emergency Room after 3 weeks of heavy bleeding. Her hemoglobin was 7. I then saw her in the office, I placed her on norethindrone and iron supplements to build her hemoglobin back up. Her periods stopped and at the time of admission her hemoglobin was 13.6, hematocrit 39.4. The day of admission, we took her to the OR, we planned on saving the right ovary; however, once we got into the abdomen, she had a frozen pelvis. Both ovaries were stuck to each other and stuck to the posterior surface of the uterus. Uterus was fixed to the colon right up to the top of the fundus and at the start of the surgery, there was no plane for the cul-de-sac. Surgery was tedious and difficult; however, we were able to control the bleeding and get all of the blood supplies starting from the top work in a way down freeing up everything from the posterior surface of the uterus and the lateral pelvic wall and eventually removing the cervix. At the finish of the procedure, everything looked good. There was a lot of raw surfaces, but the anatomical position was good. The colon was back into its normal position. We placed a [place] drain with a safety pin through a small opening in the center of the vaginal cuff. Postoperatively, she did have some delay of bowel sounds. Her hemoglobin did eventually drop to 11.4, hematocrit 34.1. She remained afebrile throughout her entire stay. Second day, we removed the drain. On the second day too she was still having some problems with ileus and that did not resolve until later in the day. On the third postoperative day, she was ambulating well, eating well. Her pain was controlled with a combination of Percocet and Motrin. Her was given prescriptions for Percocet and Motrin to fill so she would have them once she went home and she was also placed on Estrace 2 mg p.o. daily for estrogen replacement and told to call the office if she had a temperature over 100 or any heavy bleeding and to come back at the end of the week for removal of regla.
[2017-08-14 14:17] VITALS: BP 114/68; PULSE 68; TEMP 36.8; O2SAT 96
== END 2017-08-14 14:45 | disposition home or self-care (01) | DRG 743 ==
LOC: C.ACU 10:56 → C.MS4N 18:19 → ENRESERV 18:42
PROVIDERS: ADMIT Obstetrics & Gynecology; ATTEND Obstetrics & Gynecology
PROC: 0UT70ZZ Resection of Bilateral Fallopian Tubes, Open Approach (ICD-10-PCS; principal; 2017-08-11 13:15)
PROC: 0UT90ZZ Resection of Uterus, Open Approach (ICD-10-PCS; principal; 2017-08-11 13:15)
PROC: 0UTC0ZZ Resection of Cervix, Open Approach (ICD-10-PCS; principal; 2017-08-11 13:15)
DX: N94.89 Other specified conditions associated with female genital organs and menstrual cycle (principal); N80.3 Endometriosis of pelvic peritoneum; D64.9 Anemia, unspecified; N80.1 Endometriosis of ovary; N83.202 Unspecified ovarian cyst, left side

== ENCOUNTER → 2018-01-12 | Outpatient (CLI) | payer BC ==
[~2018-01-12] MED LIST changes: -ATROPINE SULFATE 0.1 MG/ML 5ML SYR IV PRN; -CEFOXITIN 2000MG/60 ML D5W IV SCH; -CEFOXITIN IV 2,000 MG in DEXTROSE 5% 50ML 50 ML IV SCH; -EpHEDrine SULFATE INJ 50 MG/ML AMP IV PRN; -FENTANYL CITRATE INJ 50 MCG/1 ML 2 ML VIAL IV PRN; -HYDROmorphone INJ 1 MG/ML SYR IV PRN; -LACTATED RINGER'S 1000ML 1,000 ML IV SCH; -ONDANSETRON INJ 2 MG/ML 2 ML VIAL IV PRN; -PHENYLEPHRINE 100MCG/ML 5ML SYR IV PRN; -PROMETHAZINE HCL INJ 12.5 MG in SODIUM CHLORIDE 0.9% 50ML 50 ML IV PRN
== END | disposition home or self-care (01) ==
LOC: C.LAB 11:02
PROVIDERS: ATTEND Obstetrics & Gynecology
DX: D64.9 Anemia, unspecified (principal)